=== PATIENT | male | born 1945 | race Caucasian/White ===

== ENCOUNTER → 2017-01-07 | Outpatient (CLI) | payer OTHER ==
[~2017-01-07] MED LIST: ASPCH81; ATEN50TA8 PO; ATOR-22 PO; CLN200 PO; COEN50CA9 PO; GABA-113 PO; GADAVIST IV PRN; HYDR25TA4 PO; LEVOTHYROXINE PO; MULT-506 PO; TRAM-10 PO; ZNTT/150 PO
--- NOTE | 2017-01-07 11:49 | DIAGNOSTIC IMAGING REPORT ---
MRI OF THE LUMBAR SPINE WITH AND WITHOUT CONTRAST CLINICAL HISTORY: Lumbar radiculopathy. Low back pain radiating into both lower extremity. Previous surgery. COMPARISON STUDY: No previous studies for comparison. TECHNIQUE: Utilizing a 1.5 Teresa magnet and dedicated coil, multiplanar, multiecho imaging of the lumbar spine was performed before and after uneventful IV administration of 9.5 mL of Gadavist. FINDINGS: For purposes of numbering on this exam, the L5-S1 disc space is assigned to axial image 27 of 30. This exam is significantly compromised by susceptibility artifact from the spinal hardware as well as motion artifact. There are bilateral pleural screws at the L4 and L5 levels with a decompression. Evaluation of these levels is nearly nondiagnostic. Paravertebral soft tissues are grossly unremarkable. The central canal and neural foramen are suboptimally assessed on this exam. T12-L1: Disc bulge with ligamentous hypertrophy is noted. There is mild to moderate narrowing of the central canal. L1-2: There is disc bulge with ligamentous hypertrophy and facet arthrosis that result in mild narrowing of the central canal and lateral recesses. L2-3: There is disc space narrowing with mild disc bulge. There is mild central canal and neural foraminal stenosis. L3-4: Evaluation is nondiagnostic due to artifact. L4-5: Evaluation is nondiagnostic due to artifact. L5-S1: Evaluation is nondiagnostic due to artifact. IMPRESSION: 1. Exam markedly compromised by susceptibility artifact from the spinal hardware and motion artifact. Evaluation of the mid to lower lumbar spine is nearly nondiagnostic. 2. Status post L4-L5 bilateral lateral pedicle screw fusion. 3. 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 Electronically signed by: Hema Lowe M.D. 01/07/2017 11:48 AM Dictated Date/Time: 01/07/2017 11:41 AM
== END | disposition home or self-care (01) ==
LOC: C.MRIBC 09:30
PROVIDERS: ATTEND Physician Assistant
DX: M54.16 Radiculopathy, lumbar region (principal); M48.05 Spinal stenosis, thoracolumbar region

== ENCOUNTER → 2017-07-21 | Outpatient (CLI) | payer OTHER ==
[~2017-07-21] MED LIST changes: -GADAVIST IV PRN
--- NOTE | 2017-07-21 14:26 | ECHOCARDIOGRAM REPORT ---
*NOTICE TO RECEIVING [employer] This information is strictly Confidential and protected under [place] law. [place] law prohibits you from making any further disclosure of this information unless further disclosure is expressly permitted by the written consent of the person to whom it pertains or is authorized by law. A general authorization for the release of medical or other information is not sufficient for this purpose. Hospital accepts no responsibility if the information is made available to any other person, INCLUDING THE PATIENT. Interpretation Summary * Name: DAWNA MAGAÑA Study Date: 07/21/2017 01:08 PM BP: 142/75 mmHg * Patient Location: [facility] HR: 83 * : 1945 (M/d/yyyy) Gender: Male Height: 70 in * Age: 71 yrs Ethnicity: [place] Weight: 205 lb * Ordering Physician: Denver Hart * Referring Physician: Denver Hart D.O. * Performed By: Josiane Brown RDCS * * Reason For Study: ABNORMAL EKG, PRE OP * BSA: 2.1 m2 * -- Conclusions -- * Normal LV chamber size with moderate concentric LVH. * Normal LV systolic function, EF 55-60%. * No segmental left ventricular wall motion abnormalities are noted. * Grade I diastolic dysfunction. * No significant valvular pathology. Procedure Details * A complete two-dimensional transthoracic echocardiogram was performed (2D, M-mode, Doppler and color flow Doppler). Left Ventricle * The left ventricle is normal in size. * There is moderate concentric left ventricular hypertrophy. * Ejection Fraction = 55-60%. * Left ventricular systolic function is normal. * No segmental left ventricular wall motion abnormalities are noted. * The left ventricular wall motion is normal. Right Ventricle * The right ventricular cavity size is normal (basal dimension <4.2 cm in right ventricular apical 4-chamber view). * The right ventricular systolic function is normal as assessed by tricuspid annular plane systolic excursion (TAPSE) (normal >1.5 cm). Atria * The left atrial size is normal. * Right atrial size is normal. * No ASD detected; PFO is not assessed. Mitral Valve * The mitral valve is normal in structure and function. Tricuspid Valve * The tricuspid valve is normal in structure and function. Aortic Valve * The aortic valve is normal in structure and function. Pulmonic Valve * The pulmonary valve is not well seen, but the Doppler examination is normal without significant regurgitation or stenosis. Great Vessels * The aortic root is normal size. Pericardium/Pleural * There is no pericardial effusion. Left Ventricular Diastolic Function * Grade I diastolic dysfunction, (abnormal relaxation pattern). MMode 2D Measurements and Calculations IVSd 1.8 cm IVSs 2.0 cm LVIDd 3.8 cm LVIDs 2.6 cm LVPWd 1.7 cm LVPWs 2.0 cm IVS/LVPW 1.0 FS 30.5 % EDV(Teich) 62.0 ml ESV(Teich) 25.6 ml EF(Teich) 58.7 % EDV(cubed) 54.9 ml ESV(cubed) 18.4 ml EF(cubed) 66.4 % % IVS thick 11.7 % % LVPW thick 16.6 % LV mass(C)d 281.7 grams LV mass(C)dI 133.5 grams/m\S\2 LV mass(C)s 231.2 grams LV mass(C)sI 109.6 grams/m\S\2 SV(Teich) 36.4 ml SI(Teich) 17.2 ml/m\S\2 SV(cubed) 36.5 ml SI(cubed) 17.3 ml/m\S\2 LA dimension 2.9 cm LVAd ap4 22.5 cm\S\2 LVLd ap4 7.6 cm EDV(MOD-sp4) 54.5 ml EDV(sp4-el) 57.1 ml LVAs ap4 12.9 cm\S\2 LVLs ap4 6.5 cm ESV(MOD-sp4) 23.2 ml ESV(sp4-el) 21.6 ml EF(MOD-sp4) 57.4 % EF(sp4-el) 62.1 % LVAd ap2 24.8 cm\S\2 LVLd ap2 8.0 cm EDV(MOD-sp2) 63.7 ml EDV(sp2-el) 65.6 ml LVAs ap2 15.2 cm\S\2 LVLs ap2 6.8 cm ESV(MOD-sp2) 29.6 ml ESV(sp2-el) 28.8 ml EF(MOD-sp2) 53.5 % EF(sp2-el) 56.2 % LVLd %diff 5.4 % EDV(MOD-bp) 60.3 ml LVLs %diff 4.6 % ESV(MOD-bp) 26.7 ml EF(MOD-bp) 55.7 % SV(MOD-sp4) 31.3 ml SI(MOD-sp4) 14.8 ml/m\S\2 SV(MOD-sp2) 34.1 ml SI(MOD-sp2) 16.2 ml/m\S\2 SV(MOD-bp) 33.6 ml SI(MOD-bp) 15.9 ml/m\S\2 SV(sp4-el) 35.5 ml SI(sp4-el) 16.8 ml/m\S\2 SV(sp2-el) 36.8 ml SI(sp2-el) 17.5 ml/m\S\2 Doppler Measurements and Calculations MV E max j carlos 60.2 cm/sec MV A max j carlos 86.8 cm/sec MV E/A 0.69 MV dec time 0.27 sec Ao V2 max 154.1 cm/sec Ao max PG 9.5 mmHg Ao max PG (full) 6.5 mmHg LV V1 max PG 3.0 mmHg LV V1 max 86.4 cm/sec TR max j carlos 172.4 cm/sec
== END | disposition home or self-care (01) ==
LOC: C.CPL 12:51
PROVIDERS: ATTEND Internal Medicine Cardiovascular Disease
DX: Z01.810 Encounter for preprocedural cardiovascular examination (principal); R94.31 Abnormal electrocardiogram [ECG] [EKG]

== ENCOUNTER → 2017-09-22 | Day surgery (SDC) | payer OTHER ==
[2017-09-09 10:48] VITALS: Ht 179.1 cm; Wt 93.2 kg
[~2017-09-22] VITALS: Ht 179.1 cm; Wt 93.2 kg
[~2017-09-22] MED LIST changes: +500ML BSS 0.3ML EPI 1:1000PF IRRIG ONE; +ACETAMINOPHEN 325 MG TAB PO PRN; +AMVISC PLUS 0.8ML SYRINGE INT OCU ONE; -ASPCH81; +ASPCH81X PO; -ATEN50TA8 PO; -ATOR-22 PO; +ATROPINE SULFATE 0.1 MG/ML 5ML SYR IV PRN; +BRIMONIDINE TART 0.2% OP SOLN PER DROP CHARGE ONE; +BRIMONIDINE TARTRATE 0.2% 5ML ONE; +BSS FLUSH ONE; -CLN200 PO; +COEN100C7 PO; -COEN50CA9 PO; +CYCL10TA6 PO; +ENDOCOAT 0.85ML SYRINGE INT OCU ONE; +EpHEDrine SULFATE INJ 50 MG/ML AMP IV PRN; +EpINEphrine INJ 1MG/ML AMP 1 MG/ML AMP ONE; -GABA-113 PO; +GABA600T PO; +LACTATED RINGER'S 1000ML 500 ML IV SCH; +LDDP5 EXT; +LEVO75TA5 PO; -LEVOTHYROXINE PO; +LIDOCAINE 4% OP SOLN DROP CHARGE ONE; +LIDOCAINE 4% OP SOLN DROP CHARGE OPR SCH; +LIDOCAINE HCL 1% MPF 2 ML VIAL ONE; +LISI40TA PO; +MIDAZOLAM HCL 1 MG/ML 2ML VIAL ONE; +MIX: 3ML BSS AND 1ML EPI(PF) TOP ONE; +MOXIFLOXACIN OPH SOLN PER DROP CHARGE ONE; +ONDANSETRON INJ 2 MG/ML 2 ML VIAL IV PRN; +POVIDONE-IODINE OP SOLN 30 ML BTL ONE; +PROPARACAINE 0.5% OP SOLN PER DROP CHARGE OPR SCH; +SIMV40TA2 PO; +SULI200T4 PO; +TOBRAMYCIN/DEXAMETHASONE OPH OINT PER APPLN CHARGE ONE
[2017-09-22] MEDS: PHENYLEPHRINE HCL 2.5% OP SOLN PER DROP CHARGE OPR SCH ×2 (08:32→08:37)
[2017-09-22] MEDS: TROPICAMIDE 1% OP SOLN PER DROP CHARGE OPR SCH ×2 (08:33→08:38)
[2017-09-22] MEDS: CYCLOPENTOLATE HCL 1% OP SOLN PER DROP CHARGE OPR SCH ×2 (08:34→08:39)
[2017-09-22] MEDS: KETOROLAC 0.5% OP SOLN PER DROP CHARGE OPR SCH ×2 (08:35→08:40)
[2017-09-22] MEDS: MOXIFLOXACIN OPH SOLN PER DROP CHARGE OPR SCH ×2 (08:36→08:46)
--- NOTE | 2017-09-22 08:42 | History & Physical Bridge - SC ---
H&P Re-Evaluation Bridge Note: I have examined the patient, reviewed the History & Physical and in the interval since the performance of the History & Physical I have noted the following changes of clinical significance: No changes noted
--- NOTE | 2017-09-22 09:43 | Discharge Instructions-SurgCtr ---
Discharge Instructions Date of Service Sep 22, 2017. Visit Reason for Visit: Cataract Right Eye Discharge Discharge Diagnosis / Problem: cataract right eye Discharge Goals Goal(s): Improve function Activity Recommendations Activity Limitations: per Instructions/Follow-up section Lifting Limitations: no more than 5 pounds Anesthesia . Post Anesthesia Instructions: If you have had General Anesthesia or IV Sedation: * Do not drive today. * Resume driving when surgeon permits. * Do not make important decisions or sign legal documents today. * Call surgeon for: 1. Temperature elevations greater than 101 degrees F. 2. Uncontrollable pain. 3. Excessive bleeding. 4. Persistent nausea and vomiting. 5. Medication intolerance (nausea, vomiting or rash). * For nausea and vomiting use only clear liquids such as: tea, soda, bouillon until nausea subsides, then gradually increase diet as tolerated. * If you have any concerns or questions, call your surgeon's office. If physician is unavailable and it is an emergency, call 911 or go to the nearest emergency room. . Instructions / Follow-Up Instructions / Follow-Up ACTIVITY RECOMMENDATIONS: * Light activities * You may walk outside, read, watch television. * Mild irritation and blurred vision are common for the first few days, redness around the white part of the eye is common. MEDICATIONS: Resume previous medications unless instructed otherwise by your surgeon. Eye drops (today and tomorrow): Polytrim - one drop in operative eye every 2 hours while awake Prednisolone 1% - one drop in operative eye every 2 hours while awake Ketorolac - one drop in operative eye every 2 hours while awake SPECIAL CARE INSTRUCTIONS: * If any problems or concerns, please call Dr. Callejas's office at . * Keep plastic shield taped over eye to sleep at night. * Keep plastic shield taped over eye except to administer eye drops. * Keep plastic shield on until office visit the following day. FOLLOW UP VISIT: Follow-up with Dr. Callejas in the [place] office as scheduled. If not already scheduled, please call the office at . Diet Recommendations Home Diet: resume previous diet Procedures Procedures Performed: Right Cataract Phacoemulsification With Intraocular Lens Implant Pending Studies Studies pending at discharge: no Medical Emergencies . Who to Call and When: Medical Emergencies: If at any time you feel your situation is an emergency, please call 911 immediately. . Non-Emergent Contact Non-Emergency issues call your: Plant And Instrument Engineer . . "Provider Documentation" section prepared by Devon Callejas. .
[2017-09-22 09:45] VITALS: TEMP 36.6
--- NOTE | 2017-09-22 09:45 | [facility] Operative Report ---
Operative Report Operative Date Sep 22, 2017. Pre-Operative Diagnosis Right Eye Cataract Post-Operative Diagnosis Same Procedure(s) Performed Right Cataract Phacoemulsification With Intraocular Lens Implant Surgeon Dr. Deneen Callejas Director Of Land Surgeon(s) None Estimated Blood Loss 0 Findings cataract right eye Fluids (cc crystalloids) see anesthesia record Specimens None Drains none Anesthesia local with sedation Complication(s) None Disposition Recovery Room / PACU Implants [id number] 23.0 Indications decreased vision right eye Description of Procedure After informed consent was obtained in the holding area the patient was wheeled back to the operating room where cardiac monitoring leads and oxygen by nasal cannula was administered by Anesthesia. Gentle IV sedation was given, and the patient's right eye was prepped and draped in usual sterile fashion. A wire lid speculum was placed into the right eye and the operating microscope was swung into position. Using 0.12 forceps and a MVR blade a paracentesis port was made 2 o'clock hours away from the 9 o'clock position of the patient's right eye. 1% non-preserved Lidocaine was then injected into the anterior chamber for anesthesia. A mixture of 1ml nonpreserved epi in 3 ml bss was injected into the eye to aid with pupillary dilation. A 2.0 mm keratotome blade was then used to make a shelved clear corneal incision at the 9 o'clock position of the right eye. Amvisc was injected into the anterior chamber and a cystotome and Utrata forceps were used to perform a curvilinear capsulorrhexis. BSS on a hydrodissection cannula was used to hydrodissect the lens nucleus away from the capsular bag. The phacoemulsification handpiece was then used in a stop and chop fashion to remove the lens nucleus. The irrigation and aspiration handpiece was then used to remove the residual cortical material. Amvisc was injected into the capsular bag and anterior chamber and a [employer]ch [employer] Lomb MX60 23.0 Diopter intraocular lens was injected into the capsular bag. Irrigation and aspiration handpiece was used to remove the residual viscoelastic material. The wounds were hydrated and noted to be watertight. The wire lid speculum was removed from the eye. Vigamox, Brimonidine, and TobraDex ointment were placed on the eye and it was shielded. It should be noted that EndoCoat was used extensively during the case to protect the cornea endothelium. DISPOSITION: The patient tolerated the procedure well and was wheeled to the post anesthesia care unit in stable condition. I attest to the content of the Intraoperative Record and any orders documented therein. Any exceptions are noted below. I attest to the content of the Intraoperative Record and any orders documented therein. Any exceptions are noted below.
--- NOTE | 2017-09-22 10:34 | Anesthesia Progress Nt - [facility] ---
Anesthesia Post Op Note Date & Time Sep 22, 2017 at 10:34 Vital Signs Pain Intensity: 0 Vital Signs Past 12 Hours Date Time Temp Pulse Resp B/P (MAP) Pulse Ox O2 Delivery O2 Flow Rate FiO2 09/22/17 09:45 36.6 75 16 116/76 (89) 95 Room Air 09/22/17 08:19 36.6 77 16 149/89 (109) 95 Room Air Notes Mental Status: alert / awake / arousable, participated in evaluation Pt Amnestic to Procedure: Yes Nausea / Vomiting: adequately controlled Pain: adequately controlled Airway Patency, RR, SpO2: stable & adequate BP & HR: stable & adequate Hydration State: stable & adequate Anesthetic Complications: no major complications apparent
[2017-09-22 10:40] VITALS: BP 126/81; PULSE 68; O2SAT 99
== END | disposition home or self-care (01) ==
LOC: X.SURG 07:46
PROVIDERS: ATTEND Ophthalmology
DX: H25.11 Age-related nuclear cataract, right eye (principal); I10 Essential (primary) hypertension; E78.00 Pure hypercholesterolemia, unspecified; M06.9 Rheumatoid arthritis, unspecified; M19.90 Unspecified osteoarthritis, unspecified site; Z79.899 Other long term (current) drug therapy

== ENCOUNTER 2025-07-12 17:28 | Inpatient (IN) ==
--- NOTE | 2025-07-12 18:37 | Emergency Department Note ---
Impression & Plan Cellulitis of foot, right ED Provider Note CHIEF COMPLAINT: Right foot infection x 1 week HISTORY OF PRESENT ILLNESS: Patient is a 79-year-old male with past medical history significant for hypertension, hypothyroidism, dyslipidemia, among other chronic medical problems who presents to the emergency department for evaluation of right foot redness, swelling and discharge. He underwent a fusion of the foot performed at the [facility] in [place] at the end of March. He was nonweightbearing in a boot with crutches/knee scooter for about 2 months. He was permitted to start partial weightbearing with crutches at the beginning of June. Patient has been having issues with wound healing, granddaughter who is a nurse has been performing dressing changes at home. He is scheduled to see wound care at the [facility] in [place] on 07/18. In the last week, he has noticed redness, swelling and generalized aching in the right foot. He rates his discomfort a 7/10. Today, he began to note watery, yellowish puslike discharge from the top of his foot. He called his providers at the [facility] and was referred to the ED for evaluation. He denies any fever, chills, nausea, vomiting or malaise. He has not been on any antibiotics during this postoperative period. REVIEW OF SYSTEMS: Review of systems as per HPI. All other systems reviewed were negative. 10 systems reviewed. PMH: External medical records are reviewed and summarized as above/below. See Problem List. SOCIAL HISTORY: Patient lives at home. PHYSICAL EXAM: Vital Signs: Reviewed Nurse's notes. CONSTITUTIONAL: Pleasant, well-appearing 79-year-old male in no acute distress laying on the gurney. Vital signs are stable. HEART: Regular rate and rhythm. LUNGS: Clear to auscultation. MUSCULOSKELETAL/INTEGUMENTARY: Examination of the right foot note healing surgical scar, with an area of necrotic skin over the dorsum of the foot. There is a small area of pointing in the dorsal foot, that is oozing orange/yellowish watery discharge. The entire dorsum of the foot and ankle is swollen, erythematous and warm to the touch. Range of motion is limited secondary to postsurgical status. Mildly diminished sensation to light touch due to surgery and neuropathy. Faint lymphangitic streaking appreciated up the hedrick. EMERGENCY DEPARTMENT COURSE: The patient was seen and assessed as above. External medical records are reviewed. He presents to the emergency department from evaluation of right foot pain, redness, swelling and discharge 3 months after right foot surgery. IV lock was initiated. Laboratory studies collected including CBC with differential, CMP, ESR, CRP, procalcitonin and lactate. A culture was obtained from the area and is pending. CT scan of the right foot with contrast was ordered. Patient reviewed with attending physician, Dr. Ceballos who agrees with the ED workup. Patient was ordered IV cefepime and vancomycin empirically. Diagnostics, as interpreted by me: Laboratory studies: Normal white count 9500. H&H 13.6 and 41.3. No electrolyte imbalance or JERRY, no transaminitis. Lactate and procalcitonin levels are not elevated. ESR elevated at 72, C-reactive protein elevated at 9.57. Imaging studies: CT scan of the right foot note postsurgical changes, degenerative changes, but no acute fracture. No significant fluid collection to indicate abscess. Patient was reassessed. He was given 1 tramadol orally for pain. Granddaughter is now at the bedside. All laboratory and diagnostic imaging studies were reviewed with him. Given rapid escalation of the infectious findings and his recent surgical fixation, I did recommend admission for IV antibiotics and he was agreeable. Consultation was placed with the [facility] service and patient reviewed with Dr. Martin. Chronic conditions affecting care: Hypertension, hypothyroidism, dyslipidemia, Differential diagnosis: Cellulitis, abscess, DVT, superficial thrombophlebitis, infected hardware, osteomyelitis, infectious tenosynovitis, among others. Past Med/Surg History Problem List (Updated 07/13/25 @ 00:41 by Vipul Wilkes) Cellulitis of foot, right (Acute) Right foot infection Degenerative joint disease of left hip Trochanteric bursitis, left hip Medical History Dyslipidemia Hypothyroidism Hypertension Social History Smoking Status: Never smoker Preferred Language: [place] Feels Safe at Home: Yes Allergies Allergies Allergy/AdvReac Type Severity Reaction Status Date / Time diclofenac Allergy Intermediate Rash Verified 07/12/25 21:08 Home Meds Home Medications Medication Instructions Recorded Confirmed amlodipine 2.5 mg tablet 2.5 mg PO DAILY 07/12/25 07/12/25 aspirin 81 mg tablet,delayed 81 mg PO DAILY 07/12/25 07/12/25 release cholecalciferol (vitamin D3) 25 25 mcg PO DAILY 07/12/25 07/12/25 mcg (1,000 unit) capsule (Vitamin D3) famotidine 20 mg tablet 20 mg PO BID 07/12/25 07/12/25 hydrochlorothiazide 25 mg tablet 25 mg PO DAILY 07/12/25 07/12/25 levothyroxine 75 mcg tablet 75 mcg PO DAILYBB 07/12/25 07/12/25 lidocaine 5 % topical patch 1 patch topical DAILY PRN Pain 07/12/25 07/12/25 lisinopril 40 mg tablet 40 mg PO DAILY 07/12/25 07/12/25 magnesium oxide 420 mg tablet 420 mg PO HS 07/12/25 07/12/25 multivitamin with minerals 1 tab PO DAILY 07/12/25 07/12/25 pravastatin 80 mg tablet 80 mg PO HS 07/12/25 07/12/25 sulindac 200 mg tablet 200 mg PO BID PRN PAIN/INFLAMATION 07/12/25 07/12/25 tramadol 50 mg tablet 50 mg PO Q8H PRN Pain 07/12/25 07/12/25 Results & Data (ED) Vital Signs Vital Signs - 24 hr 07/12/25 17:47 07/12/25 21:17 07/12/25 21:58 Temperature 36.9 C Temperature Source Temporal Artery Scan Pulse Rate 82 72 Pulse Rate [Apical] 77 Pulse Rhythm [Apical] Regular Pulse Strength [Apical] Normal Respiratory Rate 18 16 Respiratory Effort / Characteristics Non-Labored Spontaneous Non-Labored Spontaneous Respiratory Depth Normal Normal Respiratory Pattern Regular Regular Blood Pressure 125/74 Blood Pressure [Right Arm] 134/77 Blood Pressure Mean 91 Blood Pressure Mean [Right Arm] 96 Pulse Oximetry 97 100 Oxygen Delivery Method Room Air Room Air Sepsis Recent Fever Within 48 Hours No Sepsis New/Unexplained Change in Mental Status N/A Sepsis Action Taken by Nursing No Action Required Home Medications Current Medication List: was personally reviewed by me Laboratory Data Attestation: I reviewed the patient's lab results. 07/12/25 18:50 07/12/25 18:50 Lab Results 07/12/25 Range/Units 18:50 WBC 9.59 (4.8-10.8) K/ul RBC 4.60 L (4.70-6.10) M/uL Hgb 13.6 L (14.0-18.0) g/dl Hct 41.3 L (42.0-52.0) % MCV 89.8 (80.0-100.0) fL MCH 29.6 (25.0-34.0) pg MCHC 32.9 (32.0-36.0) g/dL RDW Std Deviation 42.4 (36.4-46.3) fL RDW Coeff of Flori 12.9 (11.5-14.5) % Plt Count 353 (130-400) K/uL MPV 10.7 (9.4-12.4) fL Immature Gran % (Auto) 0.2 % Neut % (Auto) 72.4 % Lymph % (Auto) 16.6 % Haines % (Auto) 8.2 % Eos % (Auto) 1.8 % Baso % (Auto) 0.8 % Neut # (Auto) 6.94 H (1.40-6.50) K/uL Lymph # (Auto) 1.59 (1.20-3.40) K/uL Haines # (Auto) 0.79 H (0.11-0.59) K/uL Eos # (Auto) 0.17 (0.00-0.50) K/uL Baso # (Auto) 0.08 (0.00-0.20) K/uL Immature Gran # (Auto) 0.02 (0.01-0.20) K/uL ESR 72 H (0-20) mm/hr Sodium 137 (136-145) mmol/L Potassium 4.3 (3.5-5.1) mmol/L Chloride 100 (98-107) mmol/L Carbon Dioxide 27 (21-32) mmol/L Anion Gap 10 (3-11) BUN 18 (6-23) mg/dl Creatinine 1.13 (0.6-1.4) mg/dl Est Cr Clr Drug Dosing 59.5 ml/min eGFR 66.53 BUN/Creatinine Ratio 15.9 (10-20) Glucose 129 H (70-99(Fasting)) mg/dl Lactate 1.7 (0.4-2.0) mmol/L Calcium 9.5 (8.6-10.3) mg/dl Total Bilirubin 0.8 (0.2-1.0) mg/dl AST 17 (13-39) U/L ALT 16 (7-52) U/L Alkaline Phosphatase 70 (34-104) U/L C-Reactive Protein 9.57 H (0-0.5) mg/dl Total Protein 8.0 (6.0-8.3) gm/dl Albumin 4.3 (3.4-5.0) gm/dl Globulin 3.7 (2.5-4.0) gm/dl Albumin/Globulin Ratio 1.2 (0.9-2) Procalcitonin 0.03 (0-0.5) ng/ml Administered Medications Sodium Chloride (Nss) 1,000 mls @ 100 mls/hr IV .Q10H MARY Stop: 07/15/25 23:44 Last Admin: 07/13/25 00:28 Dose: 100 mls/hr Documented By: CLAUDIA Discontinued Medications Cefepime HCl (Maxipime 2000mg) 2,000 mg in 20 mls @ 5 mls/min IV NOW STA; Protocol Stop: 07/12/25 20:28 Last Admin: 07/12/25 20:33 Dose: 5 mls/min Documented By: LA Vancomycin HCl 1,750 mg/ (Sodium Chloride) 535 mls @ 200 mls/hr IV NOW ONE Stop: 07/12/25 23:05 Last Admin: 07/12/25 21:00 Dose: 200 mls/hr Documented By: LA Ioversol (Optiray 320 100ml) 90 ml IV ONCE ONE Stop: 07/12/25 19:39 Last Admin: 07/12/25 19:38 Dose: 90 ml Documented By: ROGER Tramadol HCl (Tramadol Hcl 50 Mg Tablet) 50 mg PO NOW STA Stop: 07/12/25 20:47 Last Admin: 07/12/25 21:04 Dose: 50 mg Documented By: LA Imaging Data Attestation: I personally reviewed and interpreted this imaging study as follows: Radiologist's Impression: Foot CT 07/12/25 18:33 CT of the right foot with contrast Technique: Postcontrast axial images of the right foot. Coronal sagittal reformatted images made available for review Reference is made to prior MRI dated 05/05/2024 Findings: Extensive postoperative changes of the mid and hindfoot with cannulated screws and plates traversing the midfoot consistent with his arthrodesis. Orthopedic hardware appears intact and well aligned. Underlying bony parenchyma however is atrophied with erosive and destructive changes identified throughout. Soft tissue swelling overlying the dorsum of the foot. Streak artifact limits evaluation. Within the limitation of this exam however there is no fractures or dislocations present. 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 Electronically signed by Ben Gallego 07-12-2025 8:05 PM Discharge Plan Visit Data Chief Complaint: Foot Injury/Pain Stated Complaint: RT FOOT PAIN/INJURY ED Provider: Ben Ceballos ED Midlevel Provider: Vipul Wilkes Discharge Problem: Cellulitis of foot, right Patient Disposition: Admitted As Inpatient Condition: Fair Discharge Instructions Interventions: ED Discharge Assessment Last Done: 07/12/25 23:53
[2025-07-12 19:08] LABS: Hematocrit (blood only) 41.3 % (42.0-52.0); Hemoglobin 13.6 g/dl (14.0-18.0); Immature Granulocytes # (auto) 0.02 K/uL (0.01-0.20); Immature Granulocytes % (auto) 0.2 %; Mean Corpuscular Hemoglobin 29.6 pg (25.0-34.0); Mean Corpuscular Volume 89.8 fL (80.0-100.0); Platelet Count 353 K/uL (130-400); RDW Standard Deviation 42.4 fL (36.4-46.3); Red Blood Count 4.60 M/uL (4.70-6.10); White Blood Count 9.59 K/ul (4.8-10.8)
[2025-07-12 19:25] LABS: Alanine Aminotransferase 16.0 U/L (7-52); Albumin Globulin Ratio 1.2 (0.9-2); Albumin Level 4.3 gm/dl (3.4-5.0); Alkaline Phosphatase 70.0 U/L (34-104); Anion Gap 10.0 (3-11); Bilirubin,Total 0.8 mg/dl (0.2-1.0); Blood Urea Nitrogen 18.0 mg/dl (6-23); Calcium 9.5 mg/dl (8.6-10.3); Carbon Dioxide 27.0 mmol/L (21-32); Chloride 100.0 mmol/L (98-107); Creatinine Clr Calc Pharmacy 59.5 ml/min; Globulin 3.7 gm/dl (2.5-4.0); Glucose 129.0 mg/dl (70-99(Fasting)); Potassium 4.3 mmol/L (3.5-5.1); Sodium 137.0 mmol/L (136-145); Total Protein 8.0 gm/dl (6.0-8.3)
[2025-07-12] MEDS: OPTIRAY 320 100ml IV ONE (19:38)
--- NOTE | 2025-07-12 20:05 | CT Scan Report ---
CT of the right foot with contrast Technique: Postcontrast axial images of the right foot. Coronal sagittal reformatted images made available for review Reference is made to prior MRI dated 05/05/2024 Findings: Extensive postoperative changes of the mid and hindfoot with cannulated screws and plates traversing the midfoot consistent with his arthrodesis. Orthopedic hardware appears intact and well aligned. Underlying bony parenchyma however is atrophied with erosive and destructive changes identified throughout. Soft tissue swelling overlying the dorsum of the foot. Streak artifact limits evaluation. Within the limitation of this exam however there is no fractures or dislocations present. 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 Electronically signed by Ben Gallego 07-12-2025 8:05 PM
[2025-07-12] MEDS ORDERED: VANCOMYCIN CONSULT ACTIVE PRN (20:25)
[2025-07-12] MEDS: CEFEPIME 2000MG 2,000 MG/20 ML SYR IV STA (20:33)
[2025-07-12] MEDS: VANCOMYCIN HCL 1,750 MG in SODIUM CHLORIDE 0.9% 500 ML IV ONE (21:00)
--- NOTE | 2025-07-12 22:57 | History & Physical Report ---
Date of Service July 12, 2025 Assessment & Plan (1) Right foot infection: Plan: 79-year-old male past with medical history significant for prediabetes, hypothyroidism, hypertension, chronic prostatitis, degenerative disc disease, history of polymyalgia rheumatica, hypertension, GERD, hyperlipidemia presents with right foot infection. Patient had right foot fusion surgery at end of March at [facility]. He was not weightbearing and was using a scooter for couple of months. Recently started partial weightbearing with crutches at the beginning of June. Since last week he noticed redness and swelling of the right foot. The surgical sites are blackish discoloration the patient states that it did not healed up. Since about a week started noticing redness and swelling of the right foot which has progressively worsened and having pain which prompted him to come to the ER today. Denies any fevers. Patient has follow-up appointment at [facility] on July 18. No headache. No runny nose or sore throat. No cough. Vision is okay. No chest pain or shortness of breath. No nausea. No abdominal pain. Normal bowel and bladder movements. Hemodynamics are okay. Right foot infection Patient had right foot fusion surgery at end march at [facility] Since last week having swelling, redness and pain in the right foot Surgical site blackish discoloration lesions Foot CT scan. No acute findings. Advanced midfoot degenerative disease and arthrodesis without evidence of fracture. Soft tissue swelling overlying the dorsum of the foot. ER empirically started on iv Vanco and cefepime. Will continue with iv Vanco and Zosyn Gentle fluids Pain control N.p.o. for now Podiatry consult in a.m. Close monitor Hypertension On amlodipine, lisinopril and hydrochlorothiazide Will monitor Hypothyroidism On Synthyroid GERD On Pepcid Hyperlipidemia On statin DVT prophylaxis SCDs in left leg for now Disposition Medical floor Full code History of Present Illness Chief Complaint: Right foot infection Primary Care Provider: Darion Monson MD 79-year-old male with past medical history significant for prediabetes, hypothyroidism, hypertension, chronic prostatitis, degenerative disc disease, history of polymyalgia rheumatica, hypertension, GERD, hyperlipidemia presents with right foot infection. Patient had right foot fusion surgery at end of March at [facility]. He was not weightbearing and was using a scooter for couple of months. Recently started partial weightbearing with crutches at the beginning of June. Since last week he noticed redness and swelling of the right foot. The surgical sites are blackish discoloration the patient states that it did not healed up. Since about a week started noticing redness and swelling of the right foot which has progressively worsened and having pain which prompted him to come to the ER today. Denies any fevers. Patient has follow-up appointment at [facility] on July 18. No headache. No runny nose or sore throat. No cough. Vision is okay. No chest pain or shortness of breath. No nausea. No abdominal pain. Normal bowel and bladder movements. Hemodynamics are okay. Past medical history. As mentioned above. Past surgical history. Colonoscopy. Lumbar laminotomy. Lumbar spine fusion surgery. Repair of ankle dislocation of the right foot. Open repair of right rotator cuff. Sigmoidoscopy. Umbilical hernia repair. Social history. . Former smoker. Quit in 1973. No alcohol use. No drug use. Family history. Father had heart disorder. Hypertension. Stroke. Mother had heart disorder. Allergies Allergy/AdvReac Type Severity Reaction Status Date / Time diclofenac Allergy Intermediate Rash Verified 07/12/25 21:08 Home Medications Medication Instructions Recorded Confirmed Type amlodipine 2.5 mg tablet 2.5 mg PO DAILY 07/12/25 07/12/25 History aspirin 81 mg tablet,delayed 81 mg PO DAILY 07/12/25 07/12/25 History release cholecalciferol (vitamin D3) 25 25 mcg PO DAILY 07/12/25 07/12/25 History mcg (1,000 unit) capsule (Vitamin D3) famotidine 20 mg tablet 20 mg PO BID 07/12/25 07/12/25 History hydrochlorothiazide 25 mg tablet 25 mg PO DAILY 07/12/25 07/12/25 History levothyroxine 75 mcg tablet 75 mcg PO DAILYBB 07/12/25 07/12/25 History lidocaine 5 % topical patch 1 patch topical DAILY PRN Pain 07/12/25 07/12/25 History lisinopril 40 mg tablet 40 mg PO DAILY 07/12/25 07/12/25 History magnesium oxide 420 mg tablet 420 mg PO HS 07/12/25 07/12/25 History multivitamin with minerals 1 tab PO DAILY 07/12/25 07/12/25 History pravastatin 80 mg tablet 80 mg PO HS 07/12/25 07/12/25 History sulindac 200 mg tablet 200 mg PO BID PRN PAIN/INFLAMATION 07/12/25 07/12/25 H istory tramadol 50 mg tablet 50 mg PO Q8H PRN Pain 07/12/25 07/12/25 History Past Med/Surg History Problem List (Updated 07/13/25 @ 00:41 by Vipul Wilkes) Cellulitis of foot, right (Acute) Right foot infection Degenerative joint disease of left hip Trochanteric bursitis, left hip Medical History Dyslipidemia Hypothyroidism Hypertension Social History Smoking Status: Never smoker Hx Alcohol Use: No Hx Substance Use: No Preferred Language: Northern Irish Current Living Situation: Spouse Other Information That Helps Us Care for You: No Feels Safe at Home: Yes Safety Concerns: Feels Safe At This Time Assistive Devices: Crutches and Special Shoe Review of Systems Review of Systems: All systems reviewed & are unremarkable except as noted in HPI & below Physical Exam Physical Exam: General- Not in distress. Head- atraumatic Eyes- PERRL. ENT- oropharynx clear Neck- supple, no JVD. Lungs- clear to auscultation no wheezing or crackles Heart- regular rhythm; no murmur, no gallop. Abdomen- normal bowel sounds, soft, nontender, no distension Extremities- Right foot swollen and erythematous with black escar/wound seen on medial aspect and also small black lesion on lateral aspect Neuro- alert, oriented PERRL, no facial palsy; no dysarthria; moves extremities Results & Data Results & Data Vital Signs (Past 12 Hours) Vital Signs Temp Pulse Pulse Resp BP BP Pulse Ox 07/12/25 21:58 77 16 134/77 100 07/12/25 21:17 72 07/12/25 17:47 36.9 C 82 18 125/74 97 O2 Del Method 07/12/25 21:58 Room Air 07/12/25 21:17 07/12/25 17:47 Room Air Diagnostic Findings Laboratory Results WBC 9.59 K/ul (4.8-10.8) 07/12/25 18:50 RBC 4.60 M/uL (4.70-6.10) L 07/12/25 18:50 Hgb 13.6 g/dl (14.0-18.0) L 07/12/25 18:50 Hct 41.3 % (42.0-52.0) L 07/12/25 18:50 MCV 89.8 fL (80.0-100.0) 07/12/25 18:50 MCH 29.6 pg (25.0-34.0) 07/12/25 18:50 MCHC 32.9 g/dL (32.0-36.0) 07/12/25 18:50 RDW Std Deviation 42.4 fL (36.4-46.3) 07/12/25 18:50 RDW Coeff of Flori 12.9 % (11.5-14.5) 07/12/25 18:50 Plt Count 353 K/uL (130-400) 07/12/25 18:50 MPV 10.7 fL (9.4-12.4) 07/12/25 18:50 Immature Gran % (Auto) 0.2 % 07/12/25 18:50 Neut % (Auto) 72.4 % 07/12/25 18:50 Lymph % (Auto) 16.6 % 07/12/25 18:50 [place] % (Auto) 8.2 % 07/12/25 18:50 Eos % (Auto) 1.8 % 07/12/25 18:50 Baso % (Auto) 0.8 % 07/12/25 18:50 Neut # (Auto) 6.94 K/uL (1.40-6.50) H 07/12/25 18:50 Lymph # (Auto) 1.59 K/uL (1.20-3.40) 07/12/25 18:50 [place] # (Auto) 0.79 K/uL (0.11-0.59) H 07/12/25 18:50 Eos # (Auto) 0.17 K/uL (0.00-0.50) 07/12/25 18:50 Baso # (Auto) 0.08 K/uL (0.00-0.20) 07/12/25 18:50 Immature Gran # (Auto) 0.02 K/uL (0.01-0.20) 07/12/25 18:50 ESR 72 mm/hr (0-20) H 07/12/25 18:50 Sodium 137 mmol/L (136-145) 07/12/25 18:50 Potassium 4.3 mmol/L (3.5-5.1) 07/12/25 18:50 Chloride 100 mmol/L (98-107) 07/12/25 18:50 Carbon Dioxide 27 mmol/L (21-32) 07/12/25 18:50 Anion Gap 10 (3-11) 07/12/25 18:50 BUN 18 mg/dl (6-23) 07/12/25 18:50 Creatinine 1.13 mg/dl (0.6-1.4) 07/12/25 18:50 Est Cr Clr Drug Dosing 59.5 ml/min 07/12/25 18:50 eGFR 66.53 07/12/25 18:50 BUN/Creatinine Ratio 15.9 (10-20) 07/12/25 18:50 Glucose 129 mg/dl (70-99(Fasting)) H 07/12/25 18:50 Lactate 1.7 mmol/L (0.4-2.0) 07/12/25 18:50 Calcium 9.5 mg/dl (8.6-10.3) 07/12/25 18:50 Total Bilirubin 0.8 mg/dl (0.2-1.0) 07/12/25 18:50 AST 17 U/L (13-39) 07/12/25 18:50 ALT 16 U/L (7-52) 07/12/25 18:50 Alkaline Phosphatase 70 U/L (34-104) 07/12/25 18:50 C-Reactive Protein 9.57 mg/dl (0-0.5) H 07/12/25 18:50 Total Protein 8.0 gm/dl (6.0-8.3) 07/12/25 18:50 Albumin 4.3 gm/dl (3.4-5.0) 07/12/25 18:50 Globulin 3.7 gm/dl (2.5-4.0) 07/12/25 18:50 Albumin/Globulin Ratio 1.2 (0.9-2) 07/12/25 18:50 Procalcitonin 0.03 ng/ml (0-0.5) 07/12/25 18:[address] 07/12/25 18:33 CT of the right foot with contrast Technique: Postcontrast axial images of the right foot. Coronal sagittal reformatted images made available for review Reference is made to prior MRI dated 05/05/2024 Findings: Extensive postoperative changes of the mid and hindfoot with cannulated screws and plates traversing the midfoot consistent with his arthrodesis. Orthopedic hardware appears intact and well aligned. Underlying bony parenchyma however is atrophied with erosive and destructive changes identified throughout. Soft tissue swelling overlying the dorsum of the foot. Streak artifact limits evaluation. Within the limitation of this exam however there is no fractures or dislocations present. 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 Electronically signed by Ben Gallego 07-12-2025 8:05 PM Code Status & VTE Plan VTE Prophylaxis Plan VTE Prophylaxis will be ordered: Yes
[2025-07-12] MEDS ORDERED: ACETAMINOPHEN 325 MG TAB PO PRN (23:53)
[2025-07-12] MEDS ORDERED: POLYETHYLENE (MIRALAX) 17 GM PACK PO PRN (23:53)
[2025-07-12] MEDS ORDERED: HYDROmorphone INJ 0.5 MG/0.5 ML SYR IV PRN (23:53)
[2025-07-12] MEDS ORDERED: LIDOCAINE 5% 1 PATCH TD PRN (23:53)
[2025-07-13] MEDS: SODIUM CHLORIDE 0.9% 1,000 ML IV SCH (00:28)
--- NOTE | 2025-07-13 03:38 | Pharmacy Report ---
Pharmacy PK ABX Note - Date of Service July 13, 2025 - Assessment and Plan Assessment 79 year old M receiving vancomycin/Zosyn for treatment of right foot redness, swelling, and discharge. Pertinent microbiologic data includes: surface foot and blood cultures pending. Day # 1 of antimicrobial therapy. Plan Vancomycin * Loading dose: 1750 mg IV x 1 * Maintenance dose: 750 mg IV every 12 hours * Regimen is predicted to achieve target AUC/EDWARD of 400-600 mg/L.hr * Trough level ordered for: 07/14/25 @ 0730. Pharmacy will continue to follow and will adjust dose/frequency as necessary. Thank you. Pharmacy has transitioned to AUC monitoring for vancomycin. AUC/EDWARD is the preferred PK/PD target and is associated with decreased risk of nephrotoxicity compared to traditional trough targets.
[2025-07-13] MEDS: PIPERACILLIN/TAZOBACTAM 4.5 GM/100 ML BAG IV SCH (03:53)
[2025-07-13] MEDS: LEVOTHYROXINE SODIUM 75 MCG TABLET PO SCH (06:19)
[2025-07-13] MEDS: hydroCHLOROthiazide 25 MG TAB PO SCH (08:09)
[2025-07-13] MEDS: CHOLECALCIFEROL 25 MCG (1000 UNITS) TAB PO SCH (08:09)
[2025-07-13] MEDS: ASPIRIN 81 MG ECTAB PO SCH (08:10)
[2025-07-13] MEDS: CEROVITE ADV FORMULA TAB PO SCH (08:10)
[2025-07-13] MEDS: FAMOTIDINE 20 MG TAB PO SCH (08:10)
[2025-07-13 08:39] LABS: Hemoglobin A1C 6.0 % (4.5-5.6)
[2025-07-13] MEDS: VANCOMYCIN 750 MG in SODIUM CHLORIDE 0.9% 250 ML IV SCH (08:43)
[2025-07-13 09:43] LABS: Creatinine Clr Calc Pharmacy 65.9 ml/min
--- NOTE | 2025-07-13 13:07 | Hospitalist Progress Note ---
Date of Service July 13, 2025 Assessment & Plan (1) Right foot infection: Plan: 79-year-old male past with medical history significant for prediabetes, hypothyroidism, hypertension, chronic prostatitis, degenerative disc disease, history of polymyalgia rheumatica, hypertension, GERD, hyperlipidemia presents with right foot infection. Patient had right foot fusion surgery at end of March at [facility]. #Right foot infection -S/p right foot fusion surgery at end of March at [facility] -Since last week having swelling, redness and pain in the right foot -CT RLE No acute findings. Advanced midfoot degenerative disease and arthrodesis without evidence of fracture. Soft tissue swelling overlying the dorsum of the foot. -ESR elevated -Prelim wound cx growing staph aureus Plan -Continue empiric vanc and zosyn for now -Appreciate podiatry input -If going for surgery, METS >3, RCRI: 0, may proceed at low risk -NPO after MN #Hypertension On amlodipine, lisinopril and hydrochlorothiazide Will monitor #Hypothyroidism On Synthyroid #GERD On Pepcid #Hyperlipidemia On statin DVT prophylaxis SCDs in left leg for now Disposition Medical floor Full code I spent a total of 58 minutes coordinating, documenting, and providing care for this patient excluding time spent in the performance of separately billed services. This included personally reviewing all current laboratories and imaging studies, medical reconciliation, outpatient chart review and discussion with specialists Admission and Anticipated Discharge Date Admission Date: July 12, 2025 Subjective Seen in ED c 5. doing well today. less pain and swelling in his foot. Patient denies F/C, CP, palpitations, SOB, dyspnea, abd pain, N/V/D Physical Exam Physical Exam: Vitals and labs reviewed General: Well appearing, NAD HEENT: EOMI, PERRLA Neck: Supple Cardiac: RRR no rubs gallops or murmurs Lungs: CTA no rhonchi wheezing or rales Abd: S NT ND BS positive : Deffered MSK R dorsal foot ulcer with surrounding erythema Ext: No Edema cyanosis Skin: Warm, Dry Neuro: AOx3 No focal deficits. Psych: Normal Mood Results & Data Results & Data Vital Signs (Past 12 Hours) Vital Signs Pulse Pulse Resp BP BP Pulse Ox O2 Del Method 07/13/25 08:07 63 18 137/76 97 Room Air 07/13/25 03:55 57 L 16 94 Room Air 07/13/25 02:58 Room Air 07/13/25 01:42 22 96 07/13/25 01:33 59 L 15 95 07/13/25 01:30 132/71 07/13/25 01:27 65 21 95 07/13/25 01:15 63 20 96 07/13/25 01:09 66 Laboratory Results Abnormal lab results 07/12/25 07/13/25 Range/Units 18:50 04:07 RBC 4.60 L (4.70-6.10) M/uL Hgb 13.6 L (14.0-18.0) g/dl Hct 41.3 L (42.0-52.0) % Neut # (Auto) 6.94 H (1.40-6.50) K/uL [place] # (Auto) 0.79 H (0.11-0.59) K/uL ESR 72 H (0-20) mm/hr Glucose 129 H (70-99(Fasting)) mg/dl Hemoglobin A1c 6.0 H (4.5-5.6) % C-Reactive Protein 9.57 H (0-0.5) mg/dl
--- NOTE | 2025-07-13 14:09 | Podiatry Consultation ---
Date of Consultation July 13, 2025 Assessment & Plan (1) Cellulitis of foot, right: (2) Right foot infection: (3) Post-traumatic osteoarthritis, right ankle and foot: (4) Hardware complicating wound infection: Encounter type: initial encounter Qualified Code(s): T84.7XXA - Infection and inflammatory reaction due to other internal orthopedic prosthetic devices, implants and grafts, initial encounter Plan Patient was examined and evaluated. We discussed at length etiology and treatment of his right foot infection. CT imaging was reviewed extensively. This tracking/tunneling ulceration does not extend directly to hardware based on correlation with imaging. The concern is that this could be osteomyelitis or infected hardware s/p right foot midtarsal/TMTJ arthrodesis. With it being wit hin a few months of surgery, the hardware appearing intact still, and the joints still visualized on CT, it would be ideal to treat this "conservatively", leaving the hardware in place for another few months and allowing consolidation/healing of the fusion sites. This would require antibiotics to prevent or treat the infection in that time. Infectious disease consult would be helpful in this regard. Alternatively, the hardware could be removed now, and would certainly, if it were loosening or failing. Instead, his correction seems ideal and the hardware is likely still more helpful than harmful. We will discuss this with him further, but currently no hardware removal or major I&D surgical intervention is planned. Bedside deep wound cultures were obtained. We will continue to follow. Thank you for the consult. We are always happy to help. History of Present Illness Reason for Consultation: Right foot infection Attending Physician: Jesús Alves DO History of Present Illness Patient seen at bedside in the emergency department. He states that he had a reconstructive foot surgery in March for a longer standing traumatic injury to the right foot. It seems as though he had a Lisfranc fracture that was treated conservatively which led to a more chronic failure of the foot. This was repaired by the [facility] system with internal fixation which she has been healing well from since March. He did develop some chronic wound complications after these surgeries but these have mostly superficial. Now, over the last few days he has noticed increasing pain, drainage, and a deeper wound to the top of the right foot. He states this has led to some systemic feeling of infection as well which probably led him to seek treatment at the emergency department. He does have intact pain sensation of the foot and states that these wounds, especially this new deeper 1, are fully sensate and painful. Allergies Allergy/AdvReac Type Severity Reaction Status Date / Time diclofenac Allergy Intermediate Rash Verified 07/12/25 21:08 Home Medications Medication Instructions Recorded Confirmed Type amlodipine 2.5 mg tablet 2.5 mg PO DAILY 07/12/25 07/12/25 History aspirin 81 mg tablet,delayed 81 mg PO DAILY 07/12/25 07/12/25 History release cholecalciferol (vitamin D3) 25 25 mcg PO DAILY 07/12/25 07/12/25 History mcg (1,000 unit) capsule (Vitamin D3) famotidine 20 mg tablet 20 mg PO BID 07/12/25 07/12/25 History hydrochlorothiazide 25 mg tablet 25 mg PO DAILY 07/12/25 07/12/25 History levothyroxine 75 mcg tablet 75 mcg PO DAILYBB 07/12/25 07/12/25 History lidocaine 5 % topical patch 1 patch topical DAILY PRN Pain 07/12/25 07/12/25 History lisinopril 40 mg tablet 40 mg PO DAILY 07/12/25 07/12/25 History magnesium oxide 420 mg tablet 420 mg PO HS 07/12/25 07/12/25 History multivitamin with minerals 1 tab PO DAILY 07/12/25 07/12/25 History pravastatin 80 mg tablet 80 mg PO HS 07/12/25 07/12/25 History sulindac 200 mg tablet 200 mg PO BID PRN PAIN/INFLAMATION 07/12/25 07/12/25 History tramadol 50 mg tablet 50 mg PO Q8H PRN Pain 07/12/25 07/12/25 History Patient History Medical History Dyslipidemia Hypothyroidism Hypertension Social History Smoking Status: Never smoker Hx Alcohol Use: No Hx Substance Use: No Preferred Language: Swedish Communication Ability: Effective Current Living Situation: Spouse Other Information That Helps Us Care for You: No Feels Safe at Home: Yes Safety Concerns: Feels Safe At This Time Assistive Devices: Cane, Crutches, Walker and Other Review of Systems Review of Systems: All systems reviewed & are unremarkable except as noted in HPI & below Constitutional: + fever and + chills; no fatigue Eyes: no problem reported Ear, Nose, Mouth, Throat: no problem reported Respiratory: no problem reported Cardiovascular: + edema; no problem reported Gastrointestinal: no nausea, no vomiting and no problem reported Musculoskeletal: no problem reported Integumentary: + skin ulcer, + wounds and + erythema Neurologic: + loss of sensation, + numbness and + pa resthesia; no generalized weakness Psychiatric: no problem reported Physical Exam Physical Exam: Lower extremity focused exam: DP/PT pulses 2/4 bilaterally. CFT is brisk to the digits. Diffuse erythema is noted with edema to the right lower extremity. There is a stable eschar overlying the surgical site at the medial mid tarsal joint. This is a eschar measuring 2 x 3 ccm. More urgently, there is a smaller 1 cm ulceration that probes to the dorsal talar neck with purulent drainage appreciated. This does not palpably probe along the tendon sheaths and is more or less direct tunnel from the wound to the bone underlying. CT scan reviewed and reveals the ulceration with the tunneling noted, though theThis does not seem to extend to any notable hardware specifically. Constitutional: WD/WN, vitals as above + ill appearing Eyes: PERRL, conjunctivae normal, anicteric sclerae ENMT: external ear and nose normal, oropharynx normal Neck: trachea midline, no thyromegaly normal visual inspection Respiratory: normal respiratory effort; no respiratory distress Cardiovascular: Rate/Rhythm: regular rate and regular rhythm Chest (Breasts): Chest: normal inspection of chest Gastrointestinal (Abdomen): Inspection/Auscultation: abdomen normal to inspection Percussion/Palpation: + abdomen tender and abdomen soft Musculoskeletal: no cyanosis or clubbing, extremities motor strength 5/5 Head/Neck/Chest: normocephalic and head atraumatic Extremities: extremities normal to inspection Ankle: + ecchymosis Skin: + ulcer, + skin tightening, + wound, + e rythema and + eschar; no fluctulance Neurologic: patellar DTR's 2+ bilat, sensation intact normal sensation to monofilament and awake; no focal motor deficits Psychiatric: A+Ox3, euthymic affect Results & Data Vital Signs (Past 12 Hours) Vital Signs Pulse Pulse Resp BP Pulse Ox O2 Del Method 07/13/25 08:07 63 18 137/76 97 Room Air 07/13/25 03:55 57 L 16 94 Room Air 07/13/25 02:58 Room Air
[2025-07-13] MEDS: MAGNESIUM OXIDE 400 MG TAB PO SCH (20:28)
[2025-07-13] MEDS: PRAVASTATIN SOD 40 MG TAB PO SCH (20:28)
[2025-07-13] MEDS: REMOVE LIDODERM PATCH SCH (20:29)
[2025-07-14] MEDS: VANCOMYCIN LEVEL ONE (07:43)
[2025-07-14 07:56] LABS: Hematocrit (blood only) 37.1 % (42.0-52.0); Hemoglobin 12.0 g/dl (14.0-18.0); Immature Granulocytes # (auto) 0.03 K/uL (0.01-0.20); Immature Granulocytes % (auto) 0.4 %; Mean Corpuscular Hemoglobin 29.0 pg (25.0-34.0); Mean Corpuscular Volume 89.6 fL (80.0-100.0); Platelet Count 353 K/uL (130-400); RDW Standard Deviation 42.2 fL (36.4-46.3); Red Blood Count 4.14 M/uL (4.70-6.10); White Blood Count 8.14 K/ul (4.8-10.8)
[2025-07-14 08:11] LABS: Anion Gap 8.0 (3-11); Blood Urea Nitrogen 17.0 mg/dl (6-23); Calcium 9.1 mg/dl (8.6-10.3); Carbon Dioxide 28.0 mmol/L (21-32); Chloride 102.0 mmol/L (98-107); Creatinine Clr Calc Pharmacy 54.6 ml/min; Glucose 120.0 mg/dl (70-99(Fasting)); Potassium 4.3 mmol/L (3.5-5.1); Sodium 138.0 mmol/L (136-145)
[2025-07-14] MEDS: ADVANCED PROBIOTIC 625 MG CAPSULE PO SCH (09:53)
--- NOTE | 2025-07-14 10:26 | Hospitalist Progress Note ---
Date of Service July 14, 2025 Assessment & Plan (1) Right foot infection: Plan: 79-year-old male past with medical history significant for prediabetes, hypothyroidism, hypertension, chronic prostatitis, degenerative disc disease, history of polymyalgia rheumatica, hypertension, GERD, hyperlipidemia presents with right foot infection. Patient had right foot fusion surgery at end of March at [facility]. #Right foot infection -S/p right foot fusion surgery at end of March at [facility] -Since last week having swelling, redness and pain in the right foot -CT RLE No acute findings. Advanced midfoot degenerative disease and arthrodesis without evidence of fracture. Soft tissue swelling overlying the dorsum of the foot. -ESR elevated, concern for OM -Superficial wound cx growing MSSA -Deep wound prelim growing Staph aureus -Blood cx NGTD Plan -Continue empiric vanc and zosyn for now; deescalate as able -F/u on all culture data -Appreciate podiatry and ID input -Abx regimen TBD; his granddaughter is RN who lives with him so home IV abx shou ld not be an issue if needed. #Hypertension On amlodipine, lisinopril and hydrochlorothiazide Will monitor #Hypothyroidism On Synthyroid #GERD On Pepcid #Hyperlipidemia On statin DVT prophylaxis heparin sq Full code I spent a total of 51 minutes coordinating, documenting, and providing care for this patient excluding time spent in the performance of separately billed services. This included personally reviewing all current laboratories and imaging studies, medical reconciliation, outpatient chart review and discussion with specialists Admission and Anticipated Discharge Date Admission Date: July 12, 2025 Subjective Feeling well today denies any complaints. Patient denies F/C, CP, palpitations, SOB, dyspnea, abd pain, N/V/D. offered to call granddaughter who is RN but patient declined. called but sent straight to Physical Exam Physical Exam: Vitals and labs reviewed General: Well appearing, NAD HEENT: EOMI, PERRLA Neck: Supple Cardiac: RRR no rubs gallops or murmurs Lungs: CTA no rhonchi wheezing or rales Abd: S NT ND BS positive : Deffered MSK R dorsal foot ulcer with surrounding erythema Ext: No Edema cyanosis Skin: Warm, Dry Neuro: AOx3 No focal deficits. Psych: Normal Mood Results & Data Results & Data Vital Signs (Past 12 Hours) Vital Signs Temp Pulse Resp BP Pulse Ox O2 Del Method 07/14/25 07:51 36.6 C 66 18 144/60 H 97 Room Air
--- NOTE | 2025-07-14 12:30 | Pharmacy Report ---
Pharmacy PK ABX Note - Date of Service July 14, 2025 - Assessment and Plan Assessment 07/14: Day #3 antimicrobial therapy. * Vancomycin level this morning was 6.9mcg/mL which extrapolates to an AUC below the goal range. The maintenance dose of vancomycin has been increased. * Foot culture from 07/12 grew haney sensitive S. aureus and ankle culture from 07/13 grew S. aures (sensitivities pending). Preliminary blood cultures from 07/12 are no growth to date. * ID has been consulted per podiatry recommendation. 07/13: 79 year old M receiving vancomycin/Zosyn for treatment of right foot redness, swelling, and discharge. Pertinent microbiologic data includes: surface foot and blood cultures pending. Plan Vancomycin * Vancomycin level this morning was 6.9mcg/mL which extrapolates to an AUC below the goal range * Increase maintenance dose: 1000 mg IV every 12 hours * Regimen is predicted to achieve target AUC/EDWARD of 400-600 mg/L.hr * Another trough level will be ordered in the next few days or as clinically necessary. Pharmacy will continue to follow and will adjust dose/frequency as necessary. Thank you. Pharmacy has transitioned to AUC monitoring for vancomycin. AUC/EDWARD is the preferred PK/PD target and is associated with decreased risk of nephrotoxicity compared to traditional trough targets.
--- NOTE | 2025-07-14 14:35 | Infectious Disease Consult ---
Date of Service July 14, 2025 Telehealth Information I performed this visit using a real-time telehealth connection between my location and the patients location ([facility]). After connecting through interactive tele-video, patient was identified by name and date of and/or wristband check.Patient (or authorized healthcare sales representative church furniture) was informed that this was a telemedicine visit and it was being conducted confidentially over secure lines. My office door was closed and no o ne else was present in the room with me.Patient (or authorized healthcare sales representative church furniture) provided consent to proceed with the visit, expressed an understanding of privacy and security of the telemedicine visit, and gave permission to have a hospital sales representative church furniture in the room in order to assist with the visit and to conduct portions of the visit, as needed. I informed the patient (or authorized healthcare sales representative church [employer]) that I reviewed their record and presented the opportunity for them to ask any questions regarding the visit today. The patient agreed to participate. Assessment & Plan (1) Cellulitis of foot, right: (2) Hardware complicating wound infection: (3) Methicillin susceptible Staphylococcus aureus infection: Plan Please discontinue all current antibiotics. Start on IV cefazolin 2 g every 8 hours to be adjusted per kidney function. I would assume that the infection is deep-seated and involves the arthrodesis hardware. In this case, antibiotics alone will not suffice, and he will require washout with possible hardware removal. However, if there is no plan for any surgical intervention during the current admission, I would step down IV cefazolin to oral cefadroxil 1 g twice daily to be continued until the patient is seen by his Orthopedic/fitness attendant at [facility]. Thank you for consulting Infectious Disease. We will continue to follow. History of Present Illness History of Present Illness Mr. Tom is a 79-year-old man with past medical history of HTN, prediabetes, polymyalgia rheumatica, dyslipidemia who was admitted to the hospital on 07/12/2025 because of right foot surgical wound drainage. He has a history of injury to his right foot with severe degenerative disease and deformity requiring right foot fusion in March at [facility]. He mentioned that he was using the scooter and not bearing weight on the foot for almost 2 months. Around 2 weeks ago, he started bearing weight and over the last week, he noticed some redness and swelling of the right foot which was getting progressively worse. He further noticed some drainage from the surgical wound which prompted him to come to the Emergency Department. On presentation, he was afebrile, hypertensive at 149/82, the rest of the vitals were within normal limits. Initial workup showed normocytic anemia, mildly elevated CRP at 9.5, and CT of the foot showing advanced midfoot degenerative disease and arthrodesis without evidence of fracture. Superficial culture was obtained from the drainage which so far growing MSSA. ID team was consulted for further recommendations and to help guide antibiotic treatment. Allergies Allergy/AdvReac Type Severity Reaction Status Date / Time diclofenac Allergy Intermediate Rash Verified 07/12/25 21:08 Home Medications Medication Instructions Recorded Confirmed Type amlodipine 2.5 mg tablet 2.5 mg PO DAILY 07/12/25 07/12/25 History aspirin 81 mg tablet,delayed 81 mg PO DAILY 07/12/25 07/12/25 History release cholecalciferol (vitamin D3) 25 25 mcg PO DAILY 07/12/25 07/12/25 History mcg (1,000 unit) capsule (Vitamin D3) famotidine 20 mg tablet 20 mg PO BID 07/12/25 07/12/25 History hydrochlorothiazide 25 mg tablet 25 mg PO DAILY 07/12/25 07/12/25 History levothyroxine 75 mcg tablet 75 mcg PO DAILYBB 07/12/25 07/12/25 History lidocaine 5 % topical patch 1 patch topical DAILY PRN Pain 07/12/25 07/12/25 History lisinopril 40 mg tablet 40 mg PO DAILY 07/12/25 07/12/25 History magnesium oxide 420 mg tablet 420 mg PO HS 07/12/25 07/12/25 History multivitamin with minerals 1 tab PO DAILY 07/12/25 07/12/25 History pravastatin 80 mg tablet 80 mg PO HS 07/12/25 07/12/25 History sulindac 200 mg tablet 200 mg PO BID PRN PAIN/INFLAMATION 07/12/25 07/12/25 History tramadol 50 mg tablet 50 mg PO Q8H PRN Pain 07/12/25 07/12/25 History Patient History Medical History Dyslipidemia Hypothyroidism Hypertension Social History Smoking Status: Never smoker Hx Alcohol Use: No Hx Substance Use: No Preferred Language: Armenian Communication Ability: Effective Current Living Situation: Spouse Other Information That Helps Us Care for You: No Feels Safe at Home: Yes Safety Concerns: Feels Safe At This Time Assistive Devices: Cane, Crutches, Walker and Other Review of Systems Negative except for what was mentioned in the H&P. Physical Exam Could not be performed as encounter was conducted via TeleMed. Results & Data Vital Signs (Past 12 Hours) Vital Signs Temp Pulse Resp BP Pulse Ox O2 Del Method 07/14/25 14:24 36.8 C 67 16 119/68 96 Room Air 07/14/25 07:51 36.6 C 66 18 144/60 H 97 Room Air Laboratory Results Microbiology: 07/12: 2 sets of blood culture negative to date 07/12: Superficial wound culture from right foot drainage growing MSSA 07/13: Superficial wound culture from right foot drainage growing staph aureus Diagnostic Findings CT of the right foot on 07/12: Advanced midfoot degenerative disease and arthrodesis without evidence of fracture. (2) Hardware complicating wound infection Encounter type: initial encounter Qualified Code(s): T84.7XXA - Infection and inflammatory reaction due to other internal orthopedic prosthetic devices, implants and grafts, initial encounter
[2025-07-14] MEDS ORDERED: VANCOMYCIN HCL / NSS 1,000 MG/270 ML BAG IV SCH (17:00)
--- NOTE | 2025-07-14 19:34 | Podiatry Progress Note ---
Date of Service July 14, 2025 Assessment & Plan (1) Cellulitis of foot, right: (2) Right foot infection: (3) Post-traumatic osteoarthritis, right ankle and foot: (4) Hardware complicating wound infection: Plan Patient was examined and evaluated. - Agree with ID, patient would benefit from I&D, debridement, and hardware removal, however hardware is still intact and helpful in maintaining his correction - Is scheduled to see his wound care/surgical team on Friday in [place] and can continue with this plan. - They can determine need for I&D/hardware removal with their knowledge of his condition prior to admission. - Should continue with antibiotics as directed by ID until then, likely for several weeks. - He will be able to elect for this I&D and hardware removal in the future in [place], here with us outpatient, or in [place] if he desires. - Patient is in agreement and willing to be d/c with this plan tomorrow. Admission and Anticipated Discharge Date Admission Date: July 12, 2025 Subjective Patient seen at bedside. Admits to improvement in pain with no systemic symptoms of infection. He states he is scheduled to see his wound care/surgical team on Friday in [place]. States he has begun oral antibiotics and had his IV line removed. Review of Systems Constitutional: + fever and + chills; no fatigue Eyes: no problem reported Ear, Nose, Mouth, Throat: no problem reported Respiratory: no problem reported Cardiovascular: + edema; no problem reported Gastrointestinal: no nausea, no vomiting and no problem reported Musculoskeletal: no problem reported Integumentary: + skin ulcer, + wounds and + erythema Neurologic: + loss of sensation, + numbness and + pa resthesia; no generalized weakness Psychiatric: no problem reported Physical Exam Physical Exam: Lower extremity focused exam: DP/PT pulses 2/4 bilaterally. CFT is brisk to the digits. Diffuse erythema is noted with edema to the right lower extremity. There is a stable eschar overlying the surgical site at the medial mid tarsal joint. This is a eschar measuring 2 x 3 ccm. More urgently, there is a smaller 1 cm ulceration that probes to the dorsal talar neck with purulent drainage appreciated. This does not palpably probe along the tendon sheaths and is more or less direct tunnel from the wound to the bone underlying. CT scan reviewed and reveals the ulceration with the tunneling noted, though theThis does not seem to extend to any notable hardware specifically. Constitutional: WD/WN, vitals as above + ill appearing Eyes: PERRL, conjunctivae normal, anicteric sclerae ENMT: external ear and nose normal, oropharynx normal Neck: trachea midline, no thyromegaly normal visual inspection Respiratory: normal respiratory effort; no respiratory distress Cardiovascular: Rate/Rhythm: regular rate and regular rhythm Chest (Breasts): Chest: normal inspection of chest Gastrointestinal (Abdomen): Inspection/Auscultation: abdomen normal to inspection Percussion/Palpation: + abdomen tender and abdomen soft Musculoskeletal: no cyanosis or clubbing, extremities motor strength 5/5 Head/Neck/Chest: normocephalic and head atraumatic Extremities: extremities normal to inspection Ankle: + ecchymosis Skin: + ulcer, + skin tightening, + wound, + e rythema and + eschar; no fluctulance Neurologic: patellar DTR's 2+ bilat, sensation intact normal sensation to monofilament and awake; no focal motor deficits Psychiatric: A+Ox3, euthymic affect Results & Data Results & Data Vital Signs (Past 12 Hours) Vital Signs Temp Pulse Resp BP Pulse Ox O2 Del Method 07/14/25 14:24 36.8 C 67 16 119/68 96 Room Air 07/14/25 07:51 36.6 C 66 18 144/60 H 97 Room Air (4) Hardware complicating wound infection Encounter type: initial encounter Qualified Code(s): T84.7XXA - Infection and inflammatory reaction due to other internal orthopedic prosthetic devices, implants and grafts, initial encounter
[2025-07-14] MEDS: HEPARIN SOD 5,000 UNIT/0.5 ML VIAL SQ SCH (20:40)
[2025-07-14 23:15] VITALS: RESP 18
[2025-07-15] MEDS ORDERED: VANCOMYCIN LEVEL ONE (07:00)
[2025-07-15 07:12] VITALS: BP 120/70; PULSE 71; TEMP 98.2; O2SAT 98
[2025-07-15 07:35] LABS: Hematocrit (blood only) 37.7 % (42.0-52.0); Hemoglobin 12.9 g/dl (14.0-18.0); Immature Granulocytes # (auto) 0.02 K/uL (0.01-0.20); Immature Granulocytes % (auto) 0.2 %; Mean Corpuscular Hemoglobin 30.6 pg (25.0-34.0); Mean Corpuscular Volume 89.3 fL (80.0-100.0); Platelet Count 395 K/uL (130-400); RDW Standard Deviation 41.6 fL (36.4-46.3); Red Blood Count 4.22 M/uL (4.70-6.10); White Blood Count 9.18 K/ul (4.8-10.8)
[2025-07-15 07:52] LABS: Anion Gap 7.0 (3-11); Blood Urea Nitrogen 19.0 mg/dl (6-23); Calcium 9.2 mg/dl (8.6-10.3); Carbon Dioxide 27.0 mmol/L (21-32); Chloride 102.0 mmol/L (98-107); Creatinine Clr Calc Pharmacy 58.9 ml/min; Glucose 115.0 mg/dl (70-99(Fasting)); Potassium 4.1 mmol/L (3.5-5.1); Sodium 136.0 mmol/L (136-145)
--- NOTE | 2025-07-15 09:37 | Discharge Summary ---
Discharge Summary Date of Service July 15, 2025 Principal Dx & Hospital Course #1 = Principal Diagnosis (1) Right foot infection: 79-year-old male past with medical history significant for prediabetes, hypothyroidism, hypertension, chronic prostatitis, degenerative disc disease, history of polymyalgia rheumatica, hypertension, GERD, hyperlipidemia presents with right foot infection. Patient had right foot fusion surgery at end of March at [facility]. He was admitted for possible OM of the R foot and hardware infection. He was started on empiric zosyn and vanc. Podiatry and ID were consulted. Superficial and deep wound cx grew MSSA. He was deescalated to [facility]. ID and podiatry recommended I&D and possible hardware removal. ID recommended cefadroxil 1mg BID until at least the procedure is complete. He has an appt with the MA next week and will discuss with them. he is unsure if he would like to get the procedure done at the [facility] or to come here for it. If he decides to have it done locally, he was advised to call and schedule with Dr Lea. Vitals and labs are stable on day of discharge. he is feeling well and wishes to go home today. #Right foot infection -S/p right foot fusion surgery at end of March at [facility] -Since last week having swelling, redness and pain in the right foot -CT RLE No acute findings. Advanced midfoot degenerative disease and arthrodesis without evidence of fracture. Soft tissue swelling overlying the dorsum of the foot. -ESR elevated, concern for OM -Superficial wound cx growing MSSA -Deep wound prelim growing Staph aureus -Blood cx NGTD #Hypertension On amlodipine, lisinopril and hydrochlorothiazide Will monitor #Hypothyroidism On Synthyroid #GERD On Pepcid #Hyperlipidemia On statin DVT prophylaxis heparin sq Full code I spent a total of 45 minutes coordinating, documenting, and providing care for this patient excluding time spent in the performance of separately billed services. This included personally reviewing all current laboratories and imaging studies, medical reconciliation, outpatient chart review and discussion with specialists Notes For Next Care Provider Medication Changes From Visit cefadroxil as above Admission HPI Per Admitting Provider 79-year-old male with past medical history significant for prediabetes, hypothyroidism, hypertension, chronic prostatitis, degenerative disc disease, history of polymyalgia rheumatica, hypertension, GERD, hyperlipidemia presents with right foot infection. Patient had right foot fusion surgery at end of March at [facility]. He was not weightbearing and was using a scooter for couple of months. Recently started partial weightbearing with crutches at the beginning of June. Since last week he noticed redness and swelling of the right foot. The surgical sites are blackish discoloration the patient states that it did not healed up. Since about a week started noticing redness and swelling of the right foot which has progressively worsened and having pain which prompted him to come to the ER today. Denies any fevers. Patient has follow-up appointment at [facility] on July 18. No headache. No runny nose or sore throat. No cough. Vision is okay. No chest pain or shortness of breath. No nausea. No abdominal pain. Normal bowel and bladder movements. Hemodynamics are okay. Past medical history. As mentioned above. Past surgical history. Colonoscopy. Lumbar laminotomy. Lumbar spine fusion surgery. Repair of ankle dislocation of the right foot. Open repair of right rotator cuff. Sigmoidoscopy. Umbilical hernia repair. Social history. . Former smoker. Quit in 1973. No alcohol use. No drug use. Family history. Father had heart disorder. Hypertension. Stroke. Mother had heart disorder. Discharge Exam Vitals and labs reviewed General: Well appearing, NAD HEENT: EOMI, PERRLA Neck: Supple Cardiac: RRR no rubs gallops or murmurs Lungs: CTA no rhonchi wheezing or rales Abd: S NT ND BS positive : Deffered MSK: R foot bandaged Ext: No Edema cyanosis Skin: Warm, Dry Neuro: AOx3 No focal deficits. Psych: Normal Mood Updated Medication List Medication Instructions Recorded Confirmed Type amlodipine 2.5 mg tablet 2.5 mg PO DAILY 07/12/25 07/12/25 History aspirin 81 mg tablet,delayed 81 mg PO DAILY 07/12/25 07/12/25 History release cholecalciferol (vitamin D3) 25 25 mcg PO DAILY 07/12/25 07/12/25 History mcg (1,000 unit) capsule (Vitamin D3) famotidine 20 mg tablet 20 mg PO BID 07/12/25 07/12/25 History hydrochlorothiazide 25 mg tablet 25 mg PO DAILY 07/12/25 07/12/25 History levothyroxine 75 mcg tablet 75 mcg PO DAILYBB 07/12/25 07/12/25 History lidocaine 5 % topical patch 1 patch topical DAILY PRN Pain 07/12/25 07/12/25 History lisinopril 40 mg tablet 40 mg PO DAILY 07/12/25 07/12/25 History magnesium oxide 420 mg tablet 420 mg PO HS 07/12/25 07/12/25 History multivitamin with minerals 1 tab PO DAILY 07/12/25 07/12/25 History pravastatin 80 mg tablet 80 mg PO HS 07/12/25 07/12/25 History sulindac 200 mg tablet 200 mg PO BID PRN PAIN/INFLAMATION 07/12/25 07/12/25 History tramadol 50 mg tablet 50 mg PO Q8H PRN Pain 07/12/25 07/12/25 History cefadroxil 1 gram tablet 1,000 mg PO BID 30 days #60 tabs 07/15/25 Rx Hospital Stay Data Consultations 07/12/25 20:39 ED Decision to Admit Stat 07/13/25 08:00 Consult Podiatry Routine 07/14/25 07:27 Consult Infectious Diseases Routine Diagnostic Imagining Performed 07/12/25 18:33 CT foot RT w con Stat Pending Results Patient Have Any Pending Studies at Discharge: No Discharge Instructions Given to Patient (Per Discharging Provider) [facility] discuss with them that infectious disease team and podiatry team here wish for your hardware to be removed. If you would like to have the procedure done here, please call Dr Derek Lea's office to schedule. continue taking the antibiotic until your surgical team says otherwise. You will be give one month supply here; have your surgeon refill the antibiotic if needed Total Time Total Time Spent Total Time Spent (In Minutes): 45
== END 2025-07-15 16:23 | disposition home or self-care (01) | DRG 560 ==
LOC: ED 17:28 → EDINP 22:33 → 3N 07-13 15:59